=== PATIENT | male | born 1955 | race Caucasian/White ===

== ENCOUNTER 2017-11-18 09:02 | Emergency (ER) | payer OTHER ==
[2017-11-18 09:58] LABS: #Eosinphils 0.2 thou/uL (0.0-0.7); #Lymphocytes 1.4 thou/uL (1.20-3.40); #Monocytes 0.7 thou/uL (0.11-0.59); #Neutrophils 6.4 thou/uL (1.40-6.50); %Basophils 0.3 % (0.0-1.0); %Eosinophils 2.4 % (0.0-10.0); %Lymphocytes 15.6 % (21.0-51.0); %Monocytes 7.7 % (0.0-10.0); %Neutrophils 73.9 % (42.0-75.0); Hemoglobin 14.2 g/dL (14.0-18.0); Mean Corpuscular HGB CONC 32.5 g/dL (32.0-36.0); Mean Corpuscular Hemoglobin 26.5 pg (27.0-31.0); Mean Corpuscular Volume 81.6 fL (78.0-98.0); PTT 25.3 SEC (22.9-36.1); Platelet Count 190 thou/uL (130-400); Prothrombin Time 12.9 SEC (12.0-14.7); RBC Distribution Width 11.9 % (11.5-14.5); Red Blood Cell (RBC) Count 5.36 mill/uL (4.70-6.10); White Blood Cell (WBC) Count 8.7 thou/uL (4.8-10.8)
[2017-11-18 10:14] LABS: ALT (SGPT) 15 U/L (8-55); AST (SGOT) 15 U/L (5-34); Albumin 4.3 g/dL (3.5-5.0); Alkaline Phosphatase 78 U/L (40-150); Anion Gap 10 mmol/L (10-20); BUN (Urea Nitrogen) 22 mg/dL (8.4-25.7); Bilirubin, Total 0.5 mg/dL (0.2-1.2); Calc. Creatinine Clearance 0 mL/min (70-130); Calcium 9.8 mg/dL (7.8-10.44); Carbon Dioxide 31 mmol/L (22-29); Chloride 98 mmol/L (98-107); Estimated GFR-MDRD 49; Globulin 3.6 g/dL (2.4-3.5); Glucose 274 mg/dL (70-105); Potassium 4.3 mmol/L (3.5-5.1); Protein, Total 7.9 g/dL (6.0-8.3); Sodium 135 mmol/L (136-145)
== END 2017-11-18 11:15 | disposition home or self-care (01) ==
LOC: ERS 09:02
DX: M79.81 Nontraumatic hematoma of soft tissue (principal); E11.9 Type 2 diabetes mellitus without complications; I10 Essential (primary) hypertension; Z86.73 Personal history of transient ischemic attack (TIA), and cerebral infarction without residual deficits; Z79.82 Long term (current) use of aspirin; Z79.84 Long term (current) use of oral hypoglycemic drugs; Z79.899 Other long term (current) drug therapy
CPT/HCPCS: 36415; 80053; 85025; 85610; 85730; 99283

== ENCOUNTER 2018-04-22 07:01 | Day surgery (SDC) | payer OTHER ==
--- NOTE | 2018-04-02 04:31 | HP ---
HISTORY OF PRESENT ILLNESS: This is a 63-year-old male, who comes in for colonoscopy because of chronic diarrhea. The patient's diarrhea is persistent_ . The patient has had no fever, no weight loss. The patient also complains of alternative bowel movement. The patient underwent colonoscopy because of chronic diarrhea and weight loss. He also has a history of colon cancer. ALLERGIES: NONE. SOCIAL HISTORY: The patient does not smoke, but drinks alcohol socially. PAST MEDICAL HISTORY: 1. Diabetes. 2. Hypertension. 3. Hyperlipidemia. 4. Status post coronary artery bypass graft. 5. Status post CVA recovery. 6. Obesity. 7. Chronic kidney disease. 8. Peripheral vascular disease. PHYSICAL EXAMINATION: VITAL SIGNS: Pulse is 70, blood pressure 150/70. HEENT: Conjunctivae clear. CARDIOVASCULAR SYSTEM: First and second heart sounds heard. LUNGS: Clear to auscultation. ABDOMEN: Soft. No organomegaly. No tenderness. No masses. ADMITTING DIAGNOSIS: A 63-year-old male with family history of colon cancer, chronic diarrhea. PLAN: Colonoscopy. Job ID: [id number] [facility]
[2018-04-21 11:13] VITALS: BMI 34.7
--- NOTE | 2018-04-21 20:36 | HP ---
HISTORY OF PRESENT ILLNESS: This is a 63-year-old male comes with colonoscopy because history of diarrhea. The patient has had diarrhea over the last 2 months. Stools are watery. The diarrhea was actually worse in the night time than in the daytime. . No abdominal pain, hematochezia, melena, or weight loss. The patient underwent colonoscopy for chronic diarrhea. ALLERGIES: NONE. SOCIAL HISTORY: The patient does not smoke or drink alcohol socially. MEDICAL ILLNESSES: 1. Diabetes. 2. Hypertension. 3. Hyperlipidemia. 4. Coronary artery disease, status post coronary artery bypass graft. 5. Peripheral vascular disease. 6. Status post CVA recovery. 7. Obesity. 8. Chronic kidney disease. PHYSICAL EXAMINATION: VITAL SIGNS: Pulse is 70 and blood pressure 130/70. HEENT: Conjunctivae clear. CARDIOVASCULAR: First and second heart sounds heard. LUNGS: Clear to auscultation. ABDOMEN: Soft. No organomegaly. No tenderness. No masses. ADMITTING DIAGNOSIS: Chronic diarrhea. PLAN: Colonoscopy. Job ID: [id number] [facility]
[2018-04-22] MEDS ORDERED: PROPOFOL 200 MG/20 ML VIAL ONE (15:27)
--- NOTE | 2018-04-23 08:48 | OP ---
DATE OF PROCEDURE: 04/22/2018 PROCEDURE PERFORMED: Colonoscopy. PREOPERATIVE DIAGNOSES: A 63-year-old male, undergoing colonoscopy for colon cancer. He has history of diarrhea. POSTOPERATIVE DIAGNOSES: Poor prep, thick brownish stool coating the mucosa and also there were some areas that had some solid stool. Although the exam was done, the exam was not a very good one. The mucosa appears normal, but no colitis seen. Overall, the quality of prep on the exam is not very good. DESCRIPTION OF PROCEDURE: The patient was placed on his left lateral position and was given sedation by Anesthesia Department. The rectal exam was done before the scope was advanced into the rectum. No lesions felt on rectal exam. A Pentax video colonoscope was introduced into the rectum and advanced all the way to the right colon. The exam was very difficult. Right from the rectum, there was fecal coating the mucosa and also some solid stool in the sigmoid colon. Water was irrigated and washed out. The mucosa appears normal and no evidence of any colitis seen. The quality of the exam was not very good. Although, the right colon was reached. The appendiceal orifice and ileocecal wall could not be well seen. On withdrawal of scope to the ascending colon, hepatic flexure, transverse colon, splenic flexure, descending colon, sigmoid colon, no pathology seen. Rectum showed hemorrhoids. DISCHARGE PLAN: This is a 63-year-old male came for colonoscopy for colon cancer screening. The colonoscopy showed no pathology. However, the exam was not very good because of retained fecal material. We will plan to bring the patient in the near future for repeat colonoscopy. Job ID: [id number]
== END 2018-04-22 11:28 | disposition home or self-care (01) ==
LOC: SDC 07:01
PROVIDERS: ATTEND Internal Medicine Gastroenterology
PROC: 0DJD8ZZ Inspection of Lower Intestinal Tract, Via Natural or Artificial Opening Endoscopic (ICD-10-PCS; principal; 2018-04-22)
DX: K52.9 Noninfective gastroenteritis and colitis, unspecified (principal); E78.5 Hyperlipidemia, unspecified; I12.9 Hypertensive chronic kidney disease with stage 1 through stage 4 chronic kidney disease, or unspecified chronic kidney disease; E11.22 Type 2 diabetes mellitus with diabetic chronic kidney disease; N18.9 Chronic kidney disease, unspecified; E11.51 Type 2 diabetes mellitus with diabetic peripheral angiopathy without gangrene; E66.9 Obesity, unspecified; Z68.34 Body mass index [BMI] 34.0-34.9, adult; Z86.73 Personal history of transient ischemic attack (TIA), and cerebral infarction without residual deficits; Z80.0 Family history of malignant neoplasm of digestive organs; Z79.02 Long term (current) use of antithrombotics/antiplatelets; Z79.4 Long term (current) use of insulin; Z79.82 Long term (current) use of aspirin; Z79.899 Other long term (current) drug therapy; Z95.1 Presence of aortocoronary bypass graft
CPT/HCPCS: 36416; J2704

== ENCOUNTER 2019-01-07 00:58 | Inpatient (IN) | payer OTHER ==
[2019-01-07 06:25] VITALS: BMI 32.3
[2019-01-07] MEDS ORDERED: Ondansetron ODT 4 MG TAB SL PRN (06:43)
[2019-01-07] MEDS ORDERED: Ondansetron PF 4 MG/2 ML Vial IVP PRN ×2 (06:43→11:59)
[2019-01-07] MEDS ORDERED: Sodium Chloride 0.9% 1,000 ML IV SCH (06:43)
--- NOTE | 2019-01-07 08:54 | RAD ---
FRONTAL VIEW CHEST: Date: 01/07/19 COMPARISON: 10/04/16. INDICATION: Pain. FINDINGS: There is enlargement of the cardiac silhouette and pulmonary vasculature. Bilateral interstitial prom inence is seen. No discrete pneumothorax or significant effusion. Evidence of prior sternotomy. IMPRESSION: Findings favor fluid overload. Superimposed pneumonitis is not excluded. Recommend clinical correlati on, and imaging follow-up may be obtained for continued assessment. POS: [facility]
--- NOTE | 2019-01-07 09:11 | ULT ---
PRELIMINARY REPORT/[facility]/EMERGENCY AFTER HOURS PROCEDURE: PROCEDURE INFORMATION: Exam: US Abdomen Limited, Right Upper Quadrant Exam date and time: 01/07/2019 2:15 AM Clinical history: 63 years old, male; Fever and nausea and vomiting and other: Diarrhea; Abdominal pa in; Localized; Right upper quadrant (ruq); Patient HX: Ruq abd pain, n/v/d, fever TECHNIQUE: Imaging protocol: Real-time ultrasound of the abdomen with image documentation. Examination was focus ed on the right upper quadrant. COMPARISON: No relevant prior studies available. FINDINGS: Liver: Unremarkable liver, no focal abnormality. Gallbladder: The gallbladder may be partially contracted. No cholelithiasis. No definite/significant gallbladder wall thickening. Gallbladder wall thickness is upper range of nor mal, approximately 3 mm. No pericholecystic fluid. Common bile duct: No biliary dilation, common duct measures 3.1 mm. Pancreas: Visible pancreas unremarkable. Some of the pancreas is obscured by bowel gas. Right kidney: Images of the right kidney show no hydronephrosis. IMPRESSION: 1. No cholelithiasis or biliary tree dilation. 2. Other findings discussed above. Thank you for allowing us to participate in the care of your patient. Dictated and Authenticated by: Alvin James MD 01/07/2019 3:09 AM Central Time ([place] & [place]) FINAL REPORT RIGHT UPPER QUADRANT ULTRASOUND: HISTORY: Right upper quadrant pain x1 day. Nausea. Diarrhea. Vomiting. Fever. FINDINGS: No sonographic abnormality with regards to the liver. Pancreas is obscured. Portal vein is patent. Gallbladder is contracted. No sonographic evidence of cholelithiasis or pericholecystic fluid. Gallbl adder wall thickness is at the upper limits of normal and may, in part, be due to contracted state. C ommon bile duct diameter is 0.3 cm. Right kidney has a normal cortical echotexture. No hydronephrosis. IMPRESSION: This report is in agreement with the preliminary report by [facility]. No sonographic evidence of cholelith iasis or cholecystitis. Correlate clinically. HIDA scan if clinically warranted. POS: [facility]
[2019-01-07] MEDS ORDERED: Bisacodyl 5 MG TAB PO PRN (11:59)
[2019-01-07] MEDS ORDERED: Dextrose 50% Abboject 50 ML SYRINGE SLOW IVP PRN (11:59)
[2019-01-07] MEDS ORDERED: Acetaminophen 650 MG Suppository PR PRN (11:59)
[2019-01-07] MEDS ORDERED: Dextrose 5% in Water 1,000 ML IV PRN (11:59)
[2019-01-07] MEDS ORDERED: HumaLOG 300 UNITS/3 ML VIAL SC PRN (11:59)
[2019-01-07] MEDS ORDERED: Potassium Chloride 20 MEQ TAB PO SCH (12:15)
[2019-01-07] MEDS ORDERED: [UNRECOGNIZED DRUG - OTHER] SQ SCH (12:15)
[2019-01-07] MEDS ORDERED: INSULIN ASPART SQ SCH (12:15)
[2019-01-07] MEDS: Sodium Chloride 0.9% 1,000 ML IV SCH ×2 (12:40→20:06)
[2019-01-07] MEDS ORDERED: Vancomycin HCl 1 GM in Premix Bag 1 BAG IVPB SCH (14:00)
[2019-01-07] MEDS: Piperacillin/Tazobactam 4.5 GM in Sodium Chloride 0.9% 100 ML IVPB SCH ×2 (15:30→23:24)
[2019-01-07] MEDS: Acetaminophen 325 MG TAB PO PRN ×2 (15:38→20:10)
[2019-01-07] MEDS ORDERED: Potassium Chloride 10 MEQ in Premix Bag 1 BAG IVPB SCH (15:45)
[2019-01-07] MEDS: Metoprolol Tartrate 25 MG TAB PO SCH (20:06)
[2019-01-08] MEDS: Piperacillin/Tazobactam 4.5 GM in Sodium Chloride 0.9% 100 ML IVPB SCH ×2 (06:08→15:32)
[2019-01-08 06:12] LABS: #Basophils 0.2 thou/uL (0.0-0.2); #Lymphocytes 0.4 thou/uL (1.20-3.40); #Monocytes 0.4 thou/uL (0.11-0.59); #Neutrophils 7.9 thou/uL (1.40-6.50); %Basophils 1.8 % (0.0-1.0); %Eosinophils 0.2 % (0.0-10.0); %Lymphocytes 4.5 % (21.0-51.0); %Monocytes 4.5 % (0.0-10.0); %Neutrophils 89.1 % (42.0-75.0); Hemoglobin 12.2 g/dL (14.0-18.0); Mean Corpuscular HGB CONC 32.8 g/dL (32.0-36.0); Mean Corpuscular Hemoglobin 27.4 pg (27.0-31.0); Mean Corpuscular Volume 83.5 fL (78.0-98.0); Mean Platelet Volume 9.5 fL (7.4-10.4); Platelet Count 124 thou/uL (130-400); RBC Distribution Width 12.2 % (11.5-14.5); Red Blood Cell (RBC) Count 4.46 mill/uL (4.70-6.10); White Blood Cell (WBC) Count 8.8 thou/uL (4.8-10.8)
[2019-01-08 06:33] LABS: Anion Gap 13 mmol/L (10-20); BUN (Urea Nitrogen) 17 mg/dL (8.4-25.7); Calc. Creatinine Clearance 97 mL/min (70-130); Carbon Dioxide 20 mmol/L (23-31); Chloride 104 mmol/L (98-107); Estimated GFR-MDRD 67; Glucose 138 mg/dL (80-115); Potassium 3.7 mmol/L (3.5-5.1); Sodium 133 mmol/L (136-145)
--- NOTE | 2019-01-08 07:58 | HP ---
PRIMARY CARE PROVIDER: Fiona Spencer MD CHIEF COMPLAINT: Vomiting and diarrhea. HISTORY OF PRESENT ILLNESS: Mr. Esquivel is a pleasant 63-year-old gentleman, who was seen at [facility] on January 07, 2019. The patient reports having femoral bypass surgery on December 26 in the [place] area. He was doing well until yesterday. Yesterday evening, he developed chills and fever. He reports 103 degrees Fahrenheit temperature at home. He also reports a chronic cough, but no sputum. He has received influenza vaccine this year. He also reports vomiting multiple times yesterday and earlier today. He denies any blood in the vomitus. He also reports multiple bowel movements yesterday. He denies any abdominal pain. He denies any chest pain. He denies any lightheadedness. He reports generalized weakness. He presented to the emergency room at [place]. He received Zosyn there. He also had CT scan of the abdomen, which showed cholelithiasis, but no cholecystitis. He was transferred to the emergency room at [facility] for further management. REVIEW OF SYSTEMS: All systems were reviewed and found to be negative. PAST MEDICAL HISTORY: Diabetes mellitus type 2, bilateral cataract, coronary artery disease, status post PCI with stents, hypertension, and TIA. PAST SURGICAL HISTORY: Right cataract surgery, coronary artery bypass graft surgery, and femoral bypass of the right lower extremity. SOCIAL HISTORY: The patient denies tobacco use or recreational drug use. He denies any alcohol use. FAMILY HISTORY: Significant for myocardial infarction in his father. ALLERGIES: NO KNOWN DRUG ALLERGIES. CURRENT MEDICATIONS: 1. Aspirin 81 mg daily. 2. Plavix 75 mg daily. 3. Dapagliflozin 10 mg daily. 4. Losartan 25 mg daily. 5. Metformin 1000 mg 2 times a day. 6. Lopressor 50 mg 2 times a day. 7. NovoLog insulin as directed. 8. Crestor 40 mg daily. PHYSICAL EXAMINATION: GENERAL: On examination, Mr. Esquivel is awake and alert, not in acute distress. VITAL SIGNS: Blood pressure is 151/81, pulse 104, respiratory rate 16, and oxygen saturation 95% on 2 L of oxygen. He is currently afebrile. EYES: No scleral icterus. No conjunctival pallor. ENT: Moist mucosal membranes. No oropharyngeal erythema or exudates. NECK: Supple, nontender. Trachea is midline. RESPIRATORY: Accessory muscles of breathing are not active. Chest wall movements are symmetric bilaterally. LUNGS: Clear to auscultation bilaterally. Abdomen: Soft, nontender, bowel sounds are heard, no hepatomegaly, no splenomegaly. NEUROLOGIC: Cranial nerves 2 through 12 are intact. SKIN: No rashes. MUSCULOSKELETAL: Power is 5/5 in all four extremities. LYMPHATIC: No cervical lymphadenopathy. PSYCHIATRIC: Normal mood, normal affect, the patient is oriented to person, place, and time. LABORATORY DATA: Mr. Esquivel's labs and investigations were reviewed. He has leukocytosis with 23,400 white cells, of which 62% are neutrophils and 32% are bands. Hemoglobin and platelet count are normal. Serum sodium is normal. Potassium is decreased at 3.4. Creatinine is elevated at 1.35. Last known creatinine was 1.31 on September 09, 2018. Lactic acid is normal. LFTs are unremarkable. Urinalysis is positive for protein, glucose, ketones and trace blood, negative for nitrite and leukocyte esterase. IMAGING: Chest x-ray suggested fluid overload and superimposed pneumonitis could not be excluded. CT scan of the abdomen and pelvis done with IV contrast showed cholelithiasis, no acute inflammation. He appeared to have a lipoma within the wall of the colon. Abdominal ultrasound did not show cholelithiasis or biliary tree dilatation. ASSESSMENT AND PLAN: Mr. Esquivel is a pleasant 63-year-old gentleman, who was seen at [facility] on January 07, 2019. His problem list includes: 1. Sepsis: Mr. Esquivel is presenting with sepsis. There is no obvious source of infection. Could be gastroenteritis, given his history of nausea, vomiting, and diarrhea. Could also be pneumonia, which could not be excluded on the chest x- ray. Could be bacteremia. He has been started on vancomycin and Zosyn, which I will continue. We will send out blood cultures. 2. Diabetes mellitus type 2: Start Accu-Chek and insulin sliding scale. 3. Coronary artery disease: Appears to be stable. 4. Hypertension: Resume home medications, monitor vital signs and titrate antihypertensives as needed. 5. Chronic kidney disease stage 3: Appears to be stable. Many thanks for allowing me to participate in your patient's care. Please feel free to contact me with any questions or concerns. LEVEL OF RISK: Moderate. LEVEL OF COMPLEXITY: Moderate. Job ID: [id number] [facility]TD[facility]
[2019-01-08] MEDS: Aspirin 81 mg Enteric Coated Tablet PO SCH (08:34)
[2019-01-08] MEDS: Metoprolol Tartrate 25 MG TAB PO SCH ×2 (08:34→20:29)
[2019-01-08] MEDS: Clopidogrel Bisulfate 75 MG TAB PO SCH (08:34)
[2019-01-08] MEDS: Rosuvastatin 20 MG TAB PO SCH (08:34)
[2019-01-08] MEDS: Losartan 25 MG TAB PO SCH (08:34)
[2019-01-08] MEDS: Enoxaparin Sodium 40 MG/0.4 ML SYRINGE SC SCH (08:35)
[2019-01-08] MEDS ORDERED: FLU VACC QS2019-20(6MOS UP)/PF 60 MCG/0.5 ML SYRINGE IM ONE (09:00)
[2019-01-08] MEDS ORDERED: Empagliflozin [Jardiance] 10 MG PO SCH (10:45)
[2019-01-08] MEDS: Sodium Chloride 0.9% 1,000 ML IV SCH ×3 (12:00→20:29)
--- NOTE | 2019-01-08 12:11 | PDOC.HOSPP ---
- Subjective Encounter Date: 01/08/19 Encounter Time: 08:40 Subjective: Pt seen for followup re: sepsis. Feels better, no complaints. - Objective Vital Signs & Weight: Vital Signs (12 hours) Temp Pulse Resp BP BP Pulse Ox 01/08/19 11:50 98.4 F 72 14 139/84 94 L 01/08/19 08:35 95 01/08/19 08:10 98.0 F 90 20 144/86 H 144/86 H 95 Weight Admit Weight 218 lb 14.4 oz Weight 218 lb 14.4 oz I&O: 01/07/19 01/08/19 01/09/19 06:59 06:59 06:59 Intake Total 3830 Output Total 100 Balance 3730 Result Diagrams: 01/08/19 05:50 01/08/19 05:50 Additional Labs: Accuchecks 01/08/19 01/08/19 01/07/19 11:55 06:09 19:31 POC Glucose 129 H 144 H 95 01/07/19 01/07/19 17:05 12:46 POC Glucose 95 101 labs and MARs reviewed by ct Hospitalist ROS - Review of Systems Cardiovascular: denies: chest pain, palpitations, orthopnea, paroxysmal noc. dyspnea, edema, light headedness Gastrointestinal: denies: nausea, vomiting, abdominal pain, diarrhea, constipation, melena, hematochezia - Medication Medications: Active Medications Generic Name Dose Route Start Last Admin Trade Name Freq PRN Reason Stop Dose Admin Acetaminophen 650 mg 01/07/19 11:59 01/07/19 20:10 Tylenol PO 650 mg Q4H PRN Administration Headache/Fever/Mild Pain (1-3) Aspirin 81 mg 01/08/19 09:00 01/08/19 08:34 Ecotrin PO 81 mg DAILY ANGÉLICA Administration Clopidogrel Bisulfate 75 mg 01/08/19 09:00 01/08/19 08:34 Plavix PO Not Given DAILY [facility] Enoxaparin Sodium 40 mg 01/08/19 09:00 01/08/19 08:35 Lovenox SC Not Given 0900 ANGÉLICA Piperacillin Sod/Tazobactam 100 mls @ 200 mls/hr 01/07/19 15:00 01/08/19 06: 08 Sod 4.5 gm/ Sodium Chloride IVPB 100 mls 0700,1500,2300 ANGÉLICA Administration Sodium Chloride 1,000 mls @ 75 mls/hr 01/07/19 12:15 01/08/19 12:00 Normal Saline 0.9% IV 1,000 mls .[id number] ANGÉLICA Administration Vancomycin HCl 2 gm/ Sodium 500 mls @ 250 mls/hr 01/07/19 13:00 01/08/19 11: 57 Chloride IVPB 500 mls 1300 ANGÉLICA Administration Losartan Potassium 25 mg 01/08/19 09:00 01/08/19 08:34 Cozaar PO 25 mg DAILY ANGÉLICA Administration Metoprolol Tartrate 50 mg 01/07/19 21:00 01/08/19 08:34 Lopressor PO 50 mg BID ANGÉLICA Administration Empagliflozin [ 0 each 01/08/19 10:45 01/08/19 11:57 Jardiance] 10 Mg PO 01/08/19 12:45 1 each NOW ANGÉLICA Administration Rosuvastatin Calcium 40 mg 01/08/19 09:00 01/08/19 08:34 Crestor PO 40 mg DAILY ANGÉLICA Administration - Exam General - other findings: Obese Eye: anicteric sclera ENT: moist mucosa Neck: supple, no JVD Heart: RRR, no rubs Respiratory: CTAB Gastrointestinal: soft, non-tender Skin - other findings: wounds as documented Musculoskeletal: no muscle wasting Psychiatric: normal affect, normal behavior Hosp A/P (1) Sepsis Code(s): A41.9 - SEPSIS, UNSPECIFIED ORGANISM Status: Acute (2) Hyponatremia Code(s): E87.1 - HYPO-OSMOLALITY AND HYPONATREMIA Status: Acute (3) CAD (coronary artery disease) Code(s): I25.10 - ATHSCL HEART DISEASE OF [place] CORONARY ARTERY W/O ANG PCTRS Status: Chronic (4) DM2 (diabetes mellitus, type 2) Status: Chronic (5) HTN (hypertension) Code(s): I10 - ESSENTIAL (PRIMARY) HYPERTENSION Status: Chronic (6) Restless leg syndrome Status: Suspected - Plan continue antibiotics, out of bed/ambulate await blood cultures, continue antibiotics. Sepsis secondary to skin infection vs. blood stream infection.
--- NOTE | 2019-01-08 19:34 | CON ---
DATE OF CONSULTATION: REASON FOR CONSULTATION: Foot ulcer. HISTORY OF PRESENT ILLNESS: Mr. Esquivel is a 63-year-old diabetic male with peripheral neuropathy, who stepped on an earring over a year ago and walked around with it inside of his foot all day long. Since that time, he has had a sore in that area overlying the first metatarsal head. [facility], but has not really followed up with them on an ongoing basis. His has been managing the wound by placing antibiotic ointment to it, but states that intermittently it will drain out lateral to the wound or medial to the wound or even up between the first and second toes. He has recently undergone a right lower extremity bypass graft in [place] with a PTFE graft, and his vascular surgeon is planning on doing an angioplasty on the left; however, he denies rest pain or claudication and does not have any other sores on his feet. He came into the hospital because he was feeling very sick and having intractable nausea and vomiting. At that time, his left foot was red and swollen, and there was lymphangitic streaking up onto the foot. He was started on IV antibiotics, and since then, the erythema has resolved, and he is feeling much better. Workup of his abdomen was unremarkable with no abnormality seen on CT or gallbladder ultrasound. He had a foot x-ray in September, which did not show any evidence of osteomyelitis. This was around the same time he was seen [facility]. PAST MEDICAL HISTORY: Diabetes with peripheral neuropathy; coronary artery disease, status post stenting and quadruple bypass; cerebrovascular disease, status post TIA; peripheral vascular disease, status post right lower extremity bypass and with planned left lower extremity angioplasty; and hypertension. PAST SURGICAL HISTORY: Cardiac stents and 4-vessel coronary artery bypass grafting, right lower extremity bypass with graft, and cataract surgery. SOCIAL HISTORY: The patient does not smoke, drink, or use illicit drugs. FAMILY HISTORY: Heart disease in his father. ALLERGIES: HE HAS NO KNOWN DRUG ALLERGIES. OUTPATIENT MEDICATIONS: Include: 1. Aspirin. 2. Plavix. 3. Empagliflozin. 4. Losartan. 5. Metformin. 6. Lopressor. 7. NovoLog. 8. Crestor. INPATIENT MEDICATIONS: Include: 1. Lovenox. 2. Sliding scale insulin. 3. Vancomycin. 4. Zosyn. 5. As well as his home medications. LABORATORY DATA: White count was initially elevated at 23,000, but has come down to 8.8; hematocrit is 37, and platelets are 124. Electrolytes are unremarkable. BUN and creatinine are 17 and 1.12. 1 of 2 blood culture sets is positive for Streptococcus pyogenes (group A Streptococcus). PHYSICAL EXAMINATION: VITAL SIGNS: The patient has been afebrile since his admission, heart rate 72, respirations 14, 94% saturated on room air, blood pressure 139/84. GENERAL: Reveals a healthy-appearing man, in no acute distress. He is not flushed or toxic in appearance. He is not jaundiced or icteric. HEENT: Unremarkable. NECK: Supple without lymphadenopathy or thyroid nodules. HEART: Regular in its rate and rhythm without murmurs, rubs, or gallops. LUNGS: Clear to auscultation bilaterally. ABDOMEN: Soft, nontender, and nondistended. EXTREMITIES: Warm and well perfused without edema. He has palpable dorsalis pedis pulses bilaterally and normal capillary refill. No significant wounds on the right foot. On the left foot, he has a callus with a central ulcer overlying the first metatarsal head with some drainage at the medial edge of the callus. The entire callus was unroofed using a scalpel to shave back the hardened skin. This revealed a shallow ulcer underlying the callus, which did not appear to track to the deep tissues. There was no expressible drainage. This was dressed with antibiotic ointment and gauze. ASSESSMENT: Neurotrophic ulcer, which clinically appears to be fairly shallow. We will manage this with conservative wound management by keeping the ulcer bed moist with antibiotic ointment and dressing with gauze. I will see him in my clinic in 2 weeks' time. We will likely need to continue to shave the callus to prevent this from recurring. The patient wears boot on a daily basis, and I have recommended that he stop wearing boot and wear a postoperative shoe instead. I will order this for him. He was encouraged to keep his weight on his heel rather than walk on the anterior foot to avoid any further damage to the area of the ulcer. Physical Therapy has already been consulted, and we will get them to work with him. If the wound does not heal within the next few months, I would recommend bone scan or MRI of the foot to make sure that he does not have occult osteomyelitis. However, clinically, the wound does not track to the deep tissues. Job ID: [id number]
[2019-01-08] MEDS: Acetaminophen 325 MG TAB PO PRN (20:29)
[2019-01-09] MEDS: Piperacillin/Tazobactam 4.5 GM in Sodium Chloride 0.9% 100 ML IVPB SCH ×2 (00:06→06:08)
[2019-01-09 06:29] LABS: Anion Gap 9 mmol/L (10-20); BUN (Urea Nitrogen) 19 mg/dL (8.4-25.7); Calc. Creatinine Clearance 98 mL/min (70-130); Calcium 8.6 mg/dL (7.8-10.44); Carbon Dioxide 27 mmol/L (23-31); Chloride 106 mmol/L (98-107); Estimated GFR-MDRD 67; Glucose 108 mg/dL (80-115); Potassium 3.8 mmol/L (3.5-5.1); Sodium 138 mmol/L (136-145)
[2019-01-09 06:30] LABS: #Eosinphils 0.1 thou/uL (0.0-0.7); #Lymphocytes 0.8 thou/uL (1.20-3.40); #Monocytes 0.6 thou/uL (0.11-0.59); #Neutrophils 4.3 thou/uL (1.40-6.50); %Basophils 0.4 % (0.0-1.0); %Eosinophils 2.1 % (0.0-10.0); %Lymphocytes 13.5 % (21.0-51.0); %Monocytes 10.4 % (0.0-10.0); %Neutrophils 73.6 % (42.0-75.0); Hemoglobin 12.7 g/dL (14.0-18.0); Mean Corpuscular HGB CONC 33.6 g/dL (32.0-36.0); Mean Corpuscular Hemoglobin 28.2 pg (27.0-31.0); Mean Corpuscular Volume 83.9 fL (78.0-98.0); Mean Platelet Volume 10.2 fL (7.4-10.4); Platelet Count 112 thou/uL (130-400); RBC Distribution Width 12.2 % (11.5-14.5); Red Blood Cell (RBC) Count 4.51 mill/uL (4.70-6.10); White Blood Cell (WBC) Count 5.8 thou/uL (4.8-10.8)
[2019-01-09] MEDS: Clopidogrel Bisulfate 75 MG TAB PO SCH (07:50)
[2019-01-09] MEDS: Metoprolol Tartrate 25 MG TAB PO SCH ×2 (07:50→20:33)
[2019-01-09] MEDS: Aspirin 81 mg Enteric Coated Tablet PO SCH (07:50)
[2019-01-09] MEDS: Rosuvastatin 20 MG TAB PO SCH (07:51)
[2019-01-09] MEDS: Enoxaparin Sodium 40 MG/0.4 ML SYRINGE SC SCH (07:52)
[2019-01-09] MEDS: Losartan 25 MG TAB PO SCH (07:52)
[2019-01-09] MEDS: Empagliflozin [Jardiance] 10 MG PO SCH (07:56)
[2019-01-09 11:30] LABS: Vancomycin, Trough 11.4 ug/mL
[2019-01-09] MEDS ORDERED: Vancomycin 1.5 GRAM/300 ML BAG 1.5 GM in Premix Bag 1 BAG IVPB SCH (13:00)
[2019-01-09] MEDS: cefTRIAXone\\ROCEPHIN 1 GM in Sodium Chloride 0.9% 100 ML IVPB SCH (14:15)
[2019-01-09] MEDS ORDERED: Magnevist 469MG/ML 20 ML VIAL ONE (15:53)
--- NOTE | 2019-01-09 16:58 | MRI ---
MR of the left foot with and without IV contrast INDICATION: Concern for osteomyelitis and septic arthritis of the first digit MTP joint. Contrast: 20 cc of MultiHance FINDINGS: There is some mild edema involving the soft tissues plantar and medial to the greater MTP j oint. There is a very small joint effusion in the MTP joint. There is no abnormal edema involving the great toe metatarsal head or sesamoids to suggest osteomyelitis. No abnormal enhancement is noted . There is some mild soft tissue enhancement involving the plantar and medial soft tissues near the great toe MTP joint. Lisfranc alignment is preserved. Intrinsic foot musculature appears within emilio l limits. Visualized plantar fascia is unremarkable appearing. IMPRESSION: Mild cellulitis of the plantar and medial aspect of the forefoot, adjacent to the great t oe MTP joint. No overt changes to suggest presence of osteomyelitis. There is no overt changes to suggest septic arthritis of the great toe MTP joint.
[2019-01-09] MEDS: Sodium Chloride 0.9% 1,000 ML IV SCH (17:01)
--- NOTE | 2019-01-09 17:31 | PDOC.HOSPP ---
- Subjective Encounter Date: 01/09/19 Encounter Time: 09:00 Subjective: Pt seen for followup re: sepsis. Feels better. Slept well. - Objective Vital Signs & Weight: Vital Signs (12 hours) Temp Pulse Resp BP Pulse Ox 01/09/19 11:50 97.8 F 69 18 151/88 H 94 L 01/09/19 07:57 97.9 F 74 16 154/85 H 95 Weight Admit Weight 218 lb 14.4 oz Weight 218 lb 14.4 oz I&O: 01/08/19 01/09/19 01/10/19 06:59 06:59 06:59 Intake Total 3830 2807 Output Total 100 Balance 3730 2807 Result Diagrams: 01/09/19 05:28 01/09/19 05:28 Additional Labs: Accuchecks 01/09/19 01/09/19 01/09/19 16:55 11:24 04:10 POC Glucose 76 91 110 01/08/19 01/08/19 19:07 15:56 POC Glucose 174 H 178 H labs and MARs reviewed by ia Hospitalist ROS - Review of Systems Cardiovascular: denies: chest pain, palpitations, orthopnea, paroxysmal noc. dyspnea, edema, light headedness Gastrointestinal: denies: nausea, vomiting, abdominal pain, diarrhea, constipation, melena, hematochezia - Medication Medications: Active Medications Generic Name Dose Route Start Last Admin Trade Name Freq PRN Reason Stop Dose Admin Acetaminophen 650 mg 01/07/19 11:59 01/08/19 20:29 Tylenol PO 650 mg Q4H PRN Administration Headache/Fever/Mild Pain (1-3) Aspirin 81 mg 01/08/19 09:00 01/09/19 07:50 Ecotrin PO 81 mg DAILY ANGÉLICA Administration Clopidogrel Bisulfate 75 mg 01/08/19 09:00 01/09/19 07:50 Plavix PO 75 mg DAILY ANGÉLICA Administration Enoxaparin Sodium 40 mg 01/08/19 09:00 01/09/19 07:52 Lovenox SC 40 mg 0900 ANGÉLICA Administration Sodium Chloride 1,000 mls @ 75 mls/hr 01/07/19 12:15 01/09/19 17:01 Normal Saline 0.9% IV Not Given .[id number] ANGÉLICA Ceftriaxone Sodium 1 gm/ 100 mls @ 200 mls/hr 01/09/19 14:00 01/09/19 14:15 Sodium Chloride IVPB 100 mls 1400 ANGÉLICA Administration Losartan Potassium 25 mg 01/08/19 09:00 01/09/19 07:52 Cozaar PO 25 mg DAILY ANGÉLICA Administration Metoprolol Tartrate 50 mg 01/07/19 21:00 01/09/19 07:50 Lopressor PO 50 mg BID ANGÉLICA Administration Empagliflozin [ 0 each 01/09/19 09:00 01/09/19 07:56 Jardiance] 10 Mg PO 1 each DAILY ANGÉLICA Administration Rosuvastatin Calcium 40 mg 01/08/19 09:00 01/09/19 07:51 Crestor PO 40 mg DAILY ANGÉLICA Administration - Exam General - other findings: Obesity Eye: PERRL, anicteric sclera ENT: normocephalic atraumatic, moist mucosa Neck: supple, symmetric Heart: RRR, no gallops, no rubs Respiratory: CTAB Gastrointestinal: soft, non-tender Extremities: no clubbing Skin - other findings: wound as documented Psychiatric: normal affect, normal behavior Hosp A/P (1) Sepsis Code(s): A41.9 - SEPSIS, UNSPECIFIED ORGANISM Status: Acute (2) Bacteremia Code(s): R78.81 - BACTEREMIA Status: Acute (3) CAD (coronary artery disease) Code(s): I25.10 - ATHSCL HEART DISEASE OF [place] CORONARY ARTERY W/O ANG PCTRS Status: Chronic (4) DM2 (diabetes mellitus, type 2) Status: Chronic (5) HTN (hypertension) Code(s): I10 - ESSENTIAL (PRIMARY) HYPERTENSION Status: Chronic (6) Restless leg syndrome Status: Suspected (7) Hyponatremia Code(s): E87.1 - HYPO-OSMOLALITY AND HYPONATREMIA Status: Resolved - Plan plan discussed w/ family, continue antibiotics, out of bed/ambulate 1/2 blood cultures positive for strep pyogenes. Consult ID service. Add Glucerna BID. Sepsis secondary to skin infection vs. blood stream infection.
--- NOTE | 2019-01-09 19:26 | CON ---
DATE OF CONSULTATION: 01/09/2019 REASON FOR CONSULTATION: Bacteremia. HISTORY OF PRESENT ILLNESS: A 63-year-old who has a history of type 2 diabetes, coronary artery disease with prior stents, peripheral vascular disease with recent femoral-popliteal bypass in the [place] in [place], and an ulcer in the left first MPJ skin site, which has been followed by program management intern, who was admitted with nausea, vomiting, fever and chills of sudden onset on the day of admission. A little bit of headaches, which have resolved. No visual symptoms, sore throat, odynophagia, or dysphagia. No back pain. No cough, sputum production, or chest pain. No abdominal pain. A little bit of tenderness in his surgical site, mostly in the groin area. No new diarrhea or genitourinary symptoms. No joint symptoms. The left MPJ skin site apparently had kind of a reddish yellow exudate expressed by the about 2 or 3 days ago in a fairly large amount. PAST MEDICAL HISTORY: Type 2 diabetes, coronary artery disease, stents, peripheral vascular disease, femoral-popliteal of right lower extremity in [place]. 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 Never smoker. Lives in [place]. ALLERGIES: NONE. FAMILY HISTORY: Noncontributory. CURRENT MEDICATIONS: 1. Tylenol. 2. Ecotrin. 3. Bacitracin. 4. Dulcolax. 5. Plavix. 6. Enoxaparin. 7. Insulin. 8. Losartan. 9. Metoprolol. 10. Zofran. 11. Jardiance. 12. Zosyn. 13. Vancomycin. PHYSICAL EXAMINATION: VITAL SIGNS: BP normal, maybe a little elevation in systolic. Temperature within normal limits since admission. SKIN: There is a linear wound in the bottom of the left first MPJ with a little bit of erythema. It has improved quite a bit since admission. In the right groin, there is the residual from the surgical site with very mild erythema at the proximal edge of the groin incision, very small area, a little bit of yellowish base. It is less than 0.2 cm in width. No lymphadenopathy. HEENT: Noncontributory. NECK: Supple. LUNGS: Symmetric. Clear breath sounds. HEART: S1 and S2, regular rate without murmurs. ABDOMEN: Soft, not distended or tender. No ascites. No bladder distention. EXTREMITIES: No joint inflammatory activity. Pulses are 1+ in dorsalis pedis. Cap refill normal. LABORATORY DATA: White cell count is 8.8 and 5.8; hemoglobin 12.2; platelets 124, now 112; 89% neutrophils, down to 73%. Creatinine 1.12. Vancomycin trough 11.4. Blood cultures 1/4 sets with Streptococcus pyogenes. IMAGING: Abdomen and pelvis CT with no major findings. Chest x-ray, superimposed pneumonitis not excluded, but just bilateral interstitial prominence. Abdomen ultrasound, no abnormalities of significance. 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 DISCUSSION: The differential diagnosis is an infection in the left MPJ area, possible osteomyelitis and septic arthritis versus complication of the fem-pop bypass groin site. An alternate process is not likely. I believe that the foot is the more likely culprit here in view of what we described in the history. We will switch him to Rocephin 1 g daily and MRI the left foot with contrast. Job ID: [id number]
[2019-01-10] MEDS: Sodium Chloride 0.9% 1,000 ML IV SCH ×3 (00:40→21:40)
[2019-01-10 06:26] LABS: #Eosinphils 0.1 thou/uL (0.0-0.7); #Monocytes 0.8 thou/uL (0.11-0.59); #Neutrophils 4.7 thou/uL (1.40-6.50); %Basophils 0.2 % (0.0-1.0); %Eosinophils 1.6 % (0.0-10.0); %Lymphocytes 15.8 % (21.0-51.0); %Monocytes 11.5 % (0.0-10.0); Hemoglobin 12.7 g/dL (14.0-18.0); Mean Corpuscular HGB CONC 33.7 g/dL (32.0-36.0); Mean Corpuscular Hemoglobin 27.7 pg (27.0-31.0); Mean Corpuscular Volume 82.1 fL (78.0-98.0); Mean Platelet Volume 9.9 fL (7.4-10.4); Platelet Count 116 thou/uL (130-400); RBC Distribution Width 12.1 % (11.5-14.5); White Blood Cell (WBC) Count 6.6 thou/uL (4.8-10.8)
[2019-01-10 06:36] LABS: Anion Gap 13 mmol/L (10-20); BUN (Urea Nitrogen) 16 mg/dL (8.4-25.7); Calc. Creatinine Clearance 121 mL/min (70-130); Calcium 8.6 mg/dL (7.8-10.44); Carbon Dioxide 23 mmol/L (23-31); Chloride 106 mmol/L (98-107); Estimated GFR-MDRD 87; Glucose 94 mg/dL (80-115); Potassium 3.7 mmol/L (3.5-5.1); Sodium 138 mmol/L (136-145)
[2019-01-10] MEDS: Losartan 25 MG TAB PO SCH (08:11)
[2019-01-10] MEDS: Aspirin 81 mg Enteric Coated Tablet PO SCH (08:11)
[2019-01-10] MEDS: Metoprolol Tartrate 25 MG TAB PO SCH ×2 (08:11→19:34)
[2019-01-10] MEDS: Rosuvastatin 20 MG TAB PO SCH (08:11)
[2019-01-10] MEDS: Empagliflozin [Jardiance] 10 MG PO SCH (08:11)
[2019-01-10] MEDS: Enoxaparin Sodium 40 MG/0.4 ML SYRINGE SC SCH (08:11)
[2019-01-10] MEDS: Clopidogrel Bisulfate 75 MG TAB PO SCH (08:11)
[2019-01-10] MEDS: Bacitracin Zinc Ointment 30 gm TUBE TOP SCH (08:12)
[2019-01-10] MEDS ORDERED: Melatonin 3 MG TAB PO PRN (10:56)
[2019-01-10] MEDS: cefTRIAXone\\ROCEPHIN 1 GM in Sodium Chloride 0.9% 100 ML IVPB SCH (13:31)
--- NOTE | 2019-01-10 17:05 | PDOC.HOSPP ---
- Subjective Encounter Date: 01/10/19 Encounter Time: 08:20 Subjective: Pt seen for followup re: bacteremia. Feels better. - Objective Vital Signs & Weight: Vital Signs (12 hours) Temp Pulse Resp BP BP Pulse Ox 01/10/19 15:08 97.8 F 77 17 170/71 H 93 L 01/10/19 11:44 97.4 F L 69 18 149/84 H 94 L 01/10/19 08:11 92 L 01/10/19 08:00 97.6 F 87 18 166/96 H 92 L Weight Admit Weight 218 lb 14.4 oz Weight 216 lb 14.4 oz I&O: 01/09/19 01/10/19 01/11/19 06:59 06:59 06:59 Intake Total 2807 1400 1245 Balance 2807 1400 1245 Result Diagrams: 01/10/19 05:49 01/10/19 05:49 Additional Labs: Accuchecks 01/10/19 01/10/19 01/10/19 15:14 11:51 04:34 POC Glucose 165 H 94 93 01/09/19 01/09/19 19:04 16:55 POC Glucose 104 76 Labs and MARs reviewed by sc Hospitalist ROS - Review of Systems Gastrointestinal: denies: nausea, vomiting, abdominal pain, diarrhea, constipation, melena, hematochezia Genitourinary: denies: dysuria, frequency, incontinence, hematuria, retention - Medication Medications: Active Medications Generic Name Dose Route Start Last Admin Trade Name Freq PRN Reason Stop Dose Admin Acetaminophen 650 mg 01/07/19 11:59 01/08/19 20:29 Tylenol PO 650 mg Q4H PRN Administration Headache/Fever/Mild Pain (1-3) Aspirin 81 mg 01/08/19 09:00 01/10/19 08:11 Ecotrin PO 81 mg DAILY ANGÉLICA Administration Bacitracin Zinc 1 gm 01/10/19 09:00 01/10/19 08:12 Bacitracin Zinc Ointment 30 Gm TOP Not Given DAILY ANGÉLICA Clopidogrel Bisulfate 75 mg 01/08/19 09:00 01/10/19 08:11 Plavix PO 75 mg DAILY ANGÉLICA Administration Enoxaparin Sodium 40 mg 01/08/19 09:00 01/10/19 08:11 Lovenox SC 40 mg 0900 ANGÉLICA Administration Sodium Chloride 1,000 mls @ 75 mls/hr 01/07/19 12:15 01/10/19 11:48 Normal Saline 0.9% IV 1,000 mls .[id number] ANGÉLICA Administration Ceftriaxone Sodium 1 gm/ 100 mls @ 200 mls/hr 01/09/19 14:00 01/10/19 13:31 Sodium Chloride IVPB 100 mls 1400 ANGÉLICA Administration Losartan Potassium 25 mg 01/08/19 09:00 01/10/19 08:11 Cozaar PO 25 mg DAILY ANGÉLICA Administration Metoprolol Tartrate 50 mg 01/07/19 21:00 01/10/19 08:11 Lopressor PO 50 mg BID ANGÉLICA Administration Empagliflozin [ 0 each 01/09/19 09:00 01/10/19 08:11 Jardiance] 10 Mg PO 1 each DAILY ANGÉLICA Administration Rosuvastatin Calcium 40 mg 01/08/19 09:00 01/10/19 08:11 Crestor PO 40 mg DAILY ANGÉLICA Administration - Exam General - other findings: Obese Eye: anicteric sclera ENT: moist mucosa Neck: supple Heart: RRR, no rubs Respiratory: CTAB Gastrointestinal: soft, non-tender Extremities: no clubbing Psychiatric: normal affect, normal behavior Hosp A/P (1) Bacteremia Code(s): R78.81 - BACTEREMIA Status: Acute (2) CAD (coronary artery disease) Code(s): I25.10 - ATHSCL HEART DISEASE OF [place] CORONARY ARTERY W/O ANG PCTRS Status: Chronic (3) DM2 (diabetes mellitus, type 2) Status: Chronic (4) HTN (hypertension) Code(s): I10 - ESSENTIAL (PRIMARY) HYPERTENSION Status: Chronic (5) Restless leg syndrome Status: Suspected (6) Hyponatremia Code(s): E87.1 - HYPO-OSMOLALITY AND HYPONATREMIA Status: Resolved (7) Sepsis Code(s): A41.9 - SEPSIS, UNSPECIFIED ORGANISM Status: Resolved - Plan continue antibiotics, out of bed/ambulate Continue IV ceftriaxone. 1/2 blood cultures positive for strep pyogenes. Continue Glucerna BID. No evidence of osteomyelitis.
[2019-01-10] MEDS: hydrALAZINE 20 MG/ML VIAL SLOW IVP PRN (21:33)
[2019-01-11] MEDS: Sodium Chloride 0.9% 1,000 ML IV SCH (00:43)
[2019-01-11 08:24] VITALS: TEMP 97.4
[2019-01-11] MEDS: Metoprolol Tartrate 25 MG TAB PO SCH (08:38)
[2019-01-11] MEDS: Rosuvastatin 20 MG TAB PO SCH (08:38)
[2019-01-11] MEDS: Aspirin 81 mg Enteric Coated Tablet PO SCH (08:38)
[2019-01-11] MEDS: Enoxaparin Sodium 40 MG/0.4 ML SYRINGE SC SCH (08:39)
[2019-01-11] MEDS: Losartan 25 MG TAB PO SCH (08:39)
[2019-01-11] MEDS: Clopidogrel Bisulfate 75 MG TAB PO SCH (08:39)
[2019-01-11] MEDS: Empagliflozin [Jardiance] 10 MG PO SCH (08:42)
[2019-01-11] MEDS: Bacitracin Zinc Ointment 30 gm TUBE TOP SCH (08:42)
[2019-01-11] MEDS: cefTRIAXone\\ROCEPHIN 1 GM in Sodium Chloride 0.9% 100 ML IVPB SCH (14:54)
--- NOTE | 2019-01-11 15:35 | PRG ---
DATE OF SERVICE: 01/11/2019 SUBJECTIVE: Feeling well. No pain. A groin in the foot, not bothering him. No respiratory symptoms or diarrhea. No abdominal pain. OBJECTIVE: VITAL SIGNS: Temperature is normal. Bit elevation in systolic blood pressure. GENERAL: Awake, alert, and oriented. LUNGS: Clear. HEART: S1 and S2, regular rate. ABDOMEN: Soft. Right groin incision with very minimal erythema. No drainage. No tenderness. EXTREMITIES: In the left first MPJ skin site, little bit of redness, but no drainage or tenderness. LABORATORY DATA: White cell count 6.6, hemoglobin 12.7, and platelets 116. Microbiology with Streptococcus pyogenes, one set of blood cultures. ASSESSMENT AND DISCUSSION: Type 2 diabetes, recent femoral-popliteal bypass, chronic wound left first MPJ and group A strep bacteremia. The MRI did not show any evidence of osteomyelitis in the left foot and just mild cellulitis. I have recommended discharge planning on oral Keflex 500 three times a day for about 10 days. Discussed with the patient what to look for in terms of inflammatory changes in the groin and in the foot. Follow up in the clinic. Job ID: [id number]
[2019-01-11] MEDS: hydrALAZINE 20 MG/ML VIAL SLOW IVP PRN (15:36)
--- NOTE | 2019-01-11 16:42 | DIS ---
DATE OF ADMISSION: 01/07/2019 DATE OF DISCHARGE: 01/11/2019 PRIMARY CARE PROVIDER: Fiona Spencer MD DISCHARGE DIAGNOSES: 1. Sepsis. 2. Bacteremia. 3. Hyponatremia. 4. Diabetic neurotrophic ulcer. CONSULTATIONS DURING THIS HOSPITALIZATION: General Surgery, Dr. Xie and Infectious Diseases, Dr. Lacy. CONDITION OF PATIENT ON THE DAY OF DISCHARGE: Stable. I assessed Mr. Esquivel on the day of discharge. He denies any chest pain or shortness of breath. Vital signs are stable, he is not hypoxic. S1 and S2 are heard, regular. Lungs are clear to auscultation bilaterally. DISCHARGE MEDICATIONS: The patient is being discharged home on cephalexin 500 mg 3 times a day for 10 more days and bacitracin zinc ointment to be applied to the neurotrophic ulcer daily. Otherwise, no change was made to his pre-admission home medications as dictated in my history and physical note dated January 07, 2019. POSTDISCHARGE FOLLOWUP: The patient is advised to follow up with General Surgery Service in 3 weeks time and with primary care provider in 3 days time. HOSPITAL COURSE: Mr. Esquivel is a pleasant 63-year-old gentleman, who was admitted to [facility] on January 07, 2019, for sepsis. Please refer to my history and physical note dated January 07, 2019, for further details. He was seen by Wound Care Service and by General Surgery Service. He was recommended topical antibiotic ointment. He had MRI of the left foot, which showed mild cellulitis on the plantar and medial aspect of the forefoot, adjacent to the great toe MTP joint. There were no overt changes to suggest the presence of osteomyelitis. There were no overt changes to suggest septic arthritis of the great toe MTP joint. Blood cultures grew Streptococcus pyogenes, 1/2 from samples drawn on January 06, 2019. He was seen by Infectious Diseases Service. He was initially treated with intravenous antibiotics and is being discharged home on oral antibiotics. Many thanks for allowing me to participate in your patient's care. Please feel free to contact me with any questions or concerns. On January 10, Mr. Esquivel had white count 6600, hemoglobin 12.7, and platelet count 116,000. Normal chem-7 including normal creatinine of 0.89. DISCHARGE DESTINATION: Home. TOTAL AMOUNT OF TIME SPENT COORDINATING THIS DISCHARGE: 33 minutes. Job ID: [id number] [id number]
[2019-01-11 16:49] VITALS: BP 170/90
--- NOTE | 2019-01-14 02:13 | PQF ---
LUDWINAJ DAVID [id number] CLINICAL DOCUMENTATION CLARIFICATION FORM: POST DISCHARGE Addendum to original discharge summary date: ____ Late entry note date: __ DATE: 01/14/19 ATTN: Alvin Roberson Please exercise your independent, professional judgment in responding to the clarification form. Clinical indicators are provided on the bottom of this form for your review Can you please further specify the etiology of Sepsis? Please check appropriate box(es): [ ] Sepsis due complication of fem-pop bypass groin site. [ x] Sepsis due left foot cellulitis [ ] Sepsis of unknown etiology [ ] Other diagnosis please specify [ ] Unable to determine In addition, please specify: Present on Admission (POA): [ x ] Yes [ ] No [ ] Unable to determine For continuity of documentation, please document condition throughout progress notes and discharge summary. Thank You. CLINICAL INDICATORS - SIGNS / SYMPTOMS / LABS Consult 01/09 Dr. Lacy pg1- PVD with recent femoral-popliteal bypass Consult 01/09 Dr. Lacy pg1- ulcer in the left first MJP skin site Consult 01/09 Dr. Lacy pg2- Differential diagnosis is an infection in the left MPJ are, possible osteomyelitis and septic arthritis versus complication of fem-pop bypass groin site Hospitalist PN Dr. Russo 01/08pg.5- Sepsis secondary to skin infection vs blood stream infection H and P pg.3- Mr. Esquivel is presenting with sepsis. There is no obvious source of infection PN 01/11 Dr. Lacy- Type 2 diabetes, recent femoral-popliteal bypass, chronic wound left first MJP and group A strep bacteremia DS pg.1- He had MRI of the left foot, which showed mild cellulitis RISK FACTORS Type 2 DM-Consult 01/09 Dr. Lacy pg1- CAD_ Consult 01/09 Dr. Lacy pg1- PVD-Consult 01/09 Dr. Lacy pg1- status post right lower extremity bypass-Dr. Lacy pg1 Bacteremia-DS pg.1 TREATMENTS: Lower Extremity MRI 01/09 Infectious Consult- Dr. Lacy 01/09 IV Antibiotics- MAY 05 IV Fluids- MAY 05 (This form is maintained as a part of the permanent medical record) 2014 [employer]. All Rights Reserved Alvin [email or web address] [not provided] MTDD
== END 2019-01-11 17:39 | disposition home or self-care (01) | DRG 872 ==
LOC: ERS 00:58 → T4-B 03:37
PROVIDERS: ADMIT Family Medicine; ATTEND Family Medicine
DX: A41.9 Sepsis, unspecified organism (principal); L03.116 Cellulitis of left lower limb; E87.1 Hypo-osmolality and hyponatremia; E11.621 Type 2 diabetes mellitus with foot ulcer; L97.529 Non-pressure chronic ulcer of other part of left foot with unspecified severity; E11.40 Type 2 diabetes mellitus with diabetic neuropathy, unspecified; I25.10 Atherosclerotic heart disease of native coronary artery without angina pectoris; E11.51 Type 2 diabetes mellitus with diabetic peripheral angiopathy without gangrene; I12.9 Hypertensive chronic kidney disease with stage 1 through stage 4 chronic kidney disease, or unspecified chronic kidney disease; E11.22 Type 2 diabetes mellitus with diabetic chronic kidney disease; N18.3 Chronic kidney disease, stage 3 (moderate); E11.42 Type 2 diabetes mellitus with diabetic polyneuropathy; E66.9 Obesity, unspecified; Z79.84 Long term (current) use of oral hypoglycemic drugs; Z79.899 Other long term (current) drug therapy; Z95.1 Presence of aortocoronary bypass graft; Z86.73 Personal history of transient ischemic attack (TIA), and cerebral infarction without residual deficits; Z79.82 Long term (current) use of aspirin; Z79.4 Long term (current) use of insulin; Z68.31 Body mass index [BMI] 31.0-31.9, adult
CPT/HCPCS: 36415; 36416; 71045; 76705; 80048; 80202; 85025; 87040; 96361; 96365; 96366; A9579; J0360; J0696; J1650; J2405; J2543; J3370; J3480; J3490; J7050

== ENCOUNTER 2020-03-31 10:48 | Outpatient (CLI) | payer MEDICARE ==
[2020-04-01 06:44] LABS: SARS-CoV-2 PCR by NAA Not Detected (NotDetected)
== END 2020-03-31 10:49 | disposition home or self-care (01) ==
LOC: LABBT 10:48
PROVIDERS: ATTEND Ophthalmology Retina Specialist
DX: H43.11 Vitreous hemorrhage, right eye (principal); Z20.822 Contact with and (suspected) exposure to COVID-19
CPT/HCPCS: U0003; U0005; 87635

== ENCOUNTER 2020-04-05 08:12 | Day surgery (SDC) | payer MEDICARE ==
[~2020-04-05 08:12] MED LIST: EPINEPHrine 0.3 MG in Ophthalmic Irrigation Solution 500 ML IRR SCH
[2020-04-05] MEDS ORDERED: Phenylephrine 2.5% Ophth Soln 5 ML BOT ONE (08:44)
[2020-04-05] MEDS ORDERED: Cyclopentolate 1% Ophth Drops 15 ML BOT ONE (08:45)
[2020-04-05] MEDS ORDERED: Fentanyl 100 MCG/2 ML VIAL ONE (09:00)
[2020-04-05] MEDS ORDERED: Midazolam HCl 2 mg/2 ml Vial ONE (09:00)
[2020-04-05] MEDS ORDERED: PROPOFOL 200 MG/20 ML VIAL ONE (11:29)
[2020-04-05] MEDS ORDERED: Bupivacaine PF 0.75% SDV 10 ML ONE (11:29)
[2020-04-05] MEDS ORDERED: Lidocaine 4% PF 5 ML AMP ONE (11:29)
[2020-04-05] MEDS ORDERED: CEFAZOLIN 1 GM VIAL ONE (11:29)
[2020-04-05] MEDS ORDERED: Lidocaine 1% PF 5 ML VIAL ONE (11:29)
[2020-04-05] MEDS ORDERED: Maxitrol 0.1% Opth Oint 3.5 GM TUBE ONE (11:29)
[2020-04-05] MEDS ORDERED: Triamcinolone 40 MG/ML VIAL ONE (11:29)
--- NOTE | 2020-04-05 12:30 | OP ---
DATE OF PROCEDURE: 04/05/2020 PRINCIPAL PREOPERATIVE DIAGNOSIS: Vitreous hemorrhage, right eye. POSTOPERATIVE DIAGNOSES: 1. Vitreous hemorrhage, right eye. 2. Proliferative diabetic retinopathy. PROCEDURES PERFORMED: 1. 25-gauge pars plana vitrectomy, right eye. 2. Endolaser panretinal photocoagulation, right eye. ESTIMATED BLOOD LOSS: None. SPECIMENS REMOVED: None. COMPLICATIONS: None. ANESTHESIA: MAC with sub-Tenon's block. DESCRIPTION OF PROCEDURE: The patient was identified in the preoperative holding area, where the correct eye being the right eye was marked for surgery. The patient was taken to the operating room, where MAC anesthesia was induced. The right eye was prepped and draped in the usual sterile ophthalmic fashion for surgery. A wire-clip lid speculum was placed. An inferonasal conjunctival peritomy was fashioned with Newton scissors for administration of sub-Tenon's block. The block consisted of 1:1 ratio of 4% lidocaine and 0.75% Marcaine. A total of 5 mL was administered. A standard 25-gauge pars plana vitrectomy platform was fashioned with trocars placed approximately 3.5 mm from the limbus. The infusion was noted to be within the vitreous cavity prior to being turned on to an infusion pressure of 30 mmHg. The light pipe and microvitrector were introduced in the eye under visualization of the BIOM viewing system. A careful core and peripheral shave vitrectomy were performed through a significantly dense vitreous hemorrhage, which was originally obscuring view of the fundus. Upon clearance of the vitreous hemorrhage, moderate panretinal photocoagulation was placed and the retina was flat and attached. Following vitrectomy, the endolaser was used to provide panretinal photocoagulation fill-in to the preexisting laser as well as anterior and posterior to the preexisting laser. Following laser, the cannulas were sequentially removed and all sclerotomies were noted to be watertight. Subconjunctival Ancef and Kenalog were injected. The wire-clip lid speculum was removed followed by application of TobraDex ophthalmic ointment and a light patch and shield. The patient tolerated the procedure well, was taken to outpatient recovery area in good condition. Job ID: [id number]
== END 2020-04-05 11:25 | disposition home or self-care (01) ==
LOC: SDC 08:12
PROVIDERS: ATTEND Ophthalmology Retina Specialist
PROC: 08T43ZZ Resection of Right Vitreous, Percutaneous Approach (ICD-10-PCS; principal; 2020-04-05)
PROC: 08QE3ZZ Repair Right Retina, Percutaneous Approach (ICD-10-PCS; 2020-04-05)
DX: H43.11 Vitreous hemorrhage, right eye (principal); E11.3591 Type 2 diabetes mellitus with proliferative diabetic retinopathy without macular edema, right eye; Z95.1 Presence of aortocoronary bypass graft
CPT/HCPCS: 36416; J0171; J0690; J2250; J2704; J3010; J3301; J3490

== ENCOUNTER 2020-07-15 08:14 | Outpatient (CLI) | payer MEDICARE ==
[2020-07-15 17:54] LABS: SARS-CoV-2 PCR by NAA Not Detected (NotDetected)
== END 2020-07-15 08:15 | disposition home or self-care (01) ==
LOC: LABBT 08:14
PROVIDERS: ATTEND Family Medicine
DX: Z01.812 Encounter for preprocedural laboratory examination (principal); H43.822 Vitreomacular adhesion, left eye; Z20.822 Contact with and (suspected) exposure to COVID-19
CPT/HCPCS: U0003; U0005; 87635

== ENCOUNTER 2020-07-19 09:30 | Day surgery (SDC) | payer MEDICARE ==
[2020-07-18 10:52] VITALS: BMI 34.0
[~2020-07-19 09:30] MED LIST changes: +Fentanyl 100 MCG/2 ML VIAL ONE; +Midazolam HCl 2 mg/2 ml Vial ONE
[2020-07-19] MEDS ORDERED: Phenylephrine 2.5% Ophth Soln 5 ML BOT ONE (11:20)
[2020-07-19] MEDS ORDERED: Cyclopentolate 1% Opth Drop 2 ML BOT ONE (11:20)
[2020-07-19] MEDS ORDERED: Lidocaine 4% PF 5 ML AMP ONE (11:53)
[2020-07-19] MEDS ORDERED: CEFAZOLIN 1 GM VIAL ONE (11:53)
[2020-07-19] MEDS ORDERED: Triamcinolone 40 MG/ML VIAL ONE (11:53)
[2020-07-19] MEDS ORDERED: Bupivacaine PF 0.75% SDV 10 ML ONE (11:53)
[2020-07-19] MEDS ORDERED: Lidocaine 1% PF 5 ML VIAL ONE (11:53)
[2020-07-19] MEDS ORDERED: PROPOFOL 200 MG/20 ML VIAL ONE (11:53)
[2020-07-19] MEDS ORDERED: Maxitrol 0.1% Opth Oint 3.5 GM TUBE ONE (11:53)
== END 2020-07-19 13:33 | disposition home or self-care (01) ==
LOC: SDC 09:30
PROVIDERS: ATTEND Ophthalmology Retina Specialist
PROC: 08T53ZZ Resection of Left Vitreous, Percutaneous Approach (ICD-10-PCS; principal; 2020-07-19)
PROC: 08QF3ZZ Repair Left Retina, Percutaneous Approach (ICD-10-PCS; 2020-07-19)
DX: H43.12 Vitreous hemorrhage, left eye (principal); E11.3592 Type 2 diabetes mellitus with proliferative diabetic retinopathy without macular edema, left eye; Z79.02 Long term (current) use of antithrombotics/antiplatelets; Z79.4 Long term (current) use of insulin; Z79.82 Long term (current) use of aspirin; Z79.899 Other long term (current) drug therapy; Z95.1 Presence of aortocoronary bypass graft
CPT/HCPCS: J0171; J0690; J2250; J2704; J3010; J3301; J3490

== ENCOUNTER 2020-10-12 02:32 | Inpatient (IN) | payer MEDICARE ==
[2020-10-12 05:02] VITALS: BMI 32.8
[2020-10-12] MEDS ORDERED: Dextrose 50% Abboject 50 ML SYRINGE SLOW IVP PRN (09:49)
[2020-10-12] MEDS ORDERED: HYDROcodone/Acetaminophen 5/325 mg Tablet PO PRN (09:49)
[2020-10-12] MEDS ORDERED: Enoxaparin Sodium 40 MG/0.4 ML SYRINGE SC SCH (09:49)
[2020-10-12] MEDS ORDERED: Dextrose 5% in Water 1,000 ML IV PRN (09:49)
[2020-10-12] MEDS ORDERED: hydrALAZINE 20 MG/ML VIAL SLOW IVP PRN (09:49)
[2020-10-12] MEDS ORDERED: Ondansetron PF 4 MG/2 ML Vial IVP PRN (09:49)
[2020-10-12] MEDS ORDERED: Ondansetron ODT 4 MG TAB PO PRN (09:49)
[2020-10-12] MEDS ORDERED: Acetaminophen 500 MG TAB PO PRN (09:49)
[2020-10-12] MEDS: Cefepime 2 GM in Sodium Chloride 0.9% 100 ML IVPB SCH ×2 (11:20→20:42)
[2020-10-12] MEDS: Sodium Chloride 0.9% 1,000 ML IV SCH ×2 (11:21→20:41)
[2020-10-12] MEDS: Vancomycin 1.5 GRAM/300 ML BAG 1.5 GM in Premix Bag 1 BAG IVPB SCH ×2 (12:37→23:47)
[2020-10-12 13:34] LABS: Bacteria/HPF None Seen HPF (None Seen); Bilirubin Negative (Negative); Blood, Urine Trace (Negative); Clarity Clear (Clear); Glucose, Urine (Dipstick) Greater than 1000 mg/dL (Negative); Ketone, Urine 20 mg/dL (Negative); Leukocyte Negative Leu/uL (Negative); Nitrite Negative (Negative); Protein, Urine (Dipstick) 70 mg/dL (Neg-Trace); Specific Gravity, Urine 1.028 (1.002-1.036); Squamous Epithelial None Seen HPF (0-3); Urobilinogen Normal mg/dL (Less than 2); WBC/HPF 0-3 HPF (0-3)
[2020-10-12] MEDS ORDERED: Fentanyl 100 MCG/2 ML VIAL ONE (17:37)
[2020-10-12] MEDS ORDERED: Famotidine/PF 20 mg/2ml Vial ONE (17:37)
[2020-10-12] MEDS ORDERED: traMADol HCl 50 MG TAB PO PRN (17:46)
[2020-10-12] MEDS ORDERED: PHENYLEPHRINE-NS 100 MCG/ML 10 ML SYRINGE ONE (17:51)
[2020-10-12] MEDS ORDERED: Ketorolac Tromethamine 30 MG/ML VIAL ONE (17:51)
[2020-10-12] MEDS ORDERED: Lidocaine 1% PF 5 ML VIAL ONE (17:51)
[2020-10-12] MEDS ORDERED: Ondansetron PF 4 MG/2 ML Vial ONE (17:51)
[2020-10-12] MEDS ORDERED: PROPOFOL 200 MG/20 ML VIAL ONE (17:51)
[2020-10-12] MEDS ORDERED: Metoclopramide HCl 10 MG/2 ML VIAL ONE (17:51)
[2020-10-12] MEDS ORDERED: Ondansetron HCl/PF 4 MG/2 ML Vial IVP PRN (18:18)
[2020-10-12] MEDS ORDERED: Promethazine HCl 25 MG/ML VIAL IVPB PRN (18:18)
[2020-10-12] MEDS ORDERED: Promethazine HCl 25 MG/ML VIAL IM PRN (18:18)
[2020-10-12] MEDS: Rosuvastatin 20 MG TAB PO SCH (20:42)
[2020-10-12] MEDS: Famotidine 20 MG TAB PO SCH (20:42)
[2020-10-12] MEDS: Metoprolol Tartrate 50 MG TAB PO SCH (20:43)
[2020-10-12] MEDS: HumaLOG 300 UNITS/3 ML VIAL SC PRN (20:55)
[2020-10-13 03:58] LABS: #Eosinphils 0.2 thou/uL (0.0-0.7); #Lymphocytes 1.2 thou/uL (1.20-3.40); #Monocytes 1.2 thou/uL (0.11-0.59); #Neutrophils 13.7 thou/uL (1.40-6.50); %Eosinophils 1.2 % (0.0-10.0); %Lymphocytes 7.3 % (21.0-51.0); %Monocytes 7.1 % (0.0-10.0); %Neutrophils 84.4 % (42.0-75.0); Hemoglobin 11.9 g/dL (14.0-18.0); Mean Corpuscular HGB CONC 33.2 g/dL (32.0-36.0); Mean Corpuscular Hemoglobin 27.8 pg (27.0-31.0); Mean Corpuscular Volume 83.7 fL (78.0-98.0); Mean Platelet Volume 9.6 fL (7.4-10.4); Platelet Count 173 thou/uL (130-400); RBC Distribution Width 11.6 % (11.5-14.5); Red Blood Cell (RBC) Count 4.29 mill/uL (4.70-6.10); White Blood Cell (WBC) Count 16.2 thou/uL (4.8-10.8)
[2020-10-13 04:18] LABS: Anion Gap 11 mmol/L (10-20); BUN (Urea Nitrogen) 27 mg/dL (8.4-25.7); Calc. Creatinine Clearance 73 mL/min (70-130); Calcium 8.9 mg/dL (7.8-10.44); Carbon Dioxide 27 mmol/L (23-31); Chloride 98 mmol/L (98-107); Glucose 351 mg/dL (80-115); Potassium 3.9 mmol/L (3.5-5.1); Sodium 132 mmol/L (136-145)
[2020-10-13] MEDS: HumaLOG 300 UNITS/3 ML VIAL SC PRN ×4 (05:37→21:59)
[2020-10-13] MEDS: Sodium Chloride 0.9% 1,000 ML IV SCH ×2 (05:38→16:39)
[2020-10-13] MEDS: Famotidine 20 MG TAB PO SCH ×2 (08:55→21:43)
[2020-10-13] MEDS: Aspirin 81 mg Enteric Coated Tablet PO SCH (08:55)
[2020-10-13] MEDS: Enoxaparin Sodium 40 MG/0.4 ML SYRINGE SC SCH (08:55)
[2020-10-13] MEDS: Metoprolol Tartrate 50 MG TAB PO SCH ×2 (08:56→21:44)
[2020-10-13] MEDS: Clopidogrel Bisulfate 75 MG TAB PO SCH (08:56)
[2020-10-13] MEDS: Losartan 25 MG TAB PO SCH (08:56)
[2020-10-13] MEDS ORDERED: Non-Formulary Item 1 EACH (Rosuvastatin Calcium [Crestor] 40 MG Tablet) PO SCH (09:00)
[2020-10-13] MEDS: Cefepime 2 GM in Sodium Chloride 0.9% 100 ML IVPB SCH ×2 (09:00→21:44)
[2020-10-13] MEDS ORDERED: Aspirin 81 mg Enteric Coated Tablet PO SCH (09:00)
[2020-10-13] MEDS: Vancomycin 1.5 GRAM/300 ML BAG 1.5 GM in Premix Bag 1 BAG IVPB SCH ×2 (11:30→23:59)
[2020-10-13] MEDS: Rosuvastatin 20 MG TAB PO SCH (21:44)
[2020-10-14] MEDS: Sodium Chloride 0.9% 1,000 ML IV SCH ×2 (04:59→12:41)
[2020-10-14] MEDS: HumaLOG 300 UNITS/3 ML VIAL SC PRN ×3 (05:57→17:21)
[2020-10-14 08:39] LABS: #Eosinphils 0.3 thou/uL (0.0-0.7); #Lymphocytes 1.1 thou/uL (1.20-3.40); #Monocytes 0.6 thou/uL (0.11-0.59); #Neutrophils 5.9 thou/uL (1.40-6.50); %Basophils 0.1 % (0.0-1.0); %Eosinophils 3.7 % (0.0-10.0); %Lymphocytes 13.7 % (21.0-51.0); %Monocytes 8.1 % (0.0-10.0); %Neutrophils 74.4 % (42.0-75.0); Hemoglobin 10.4 g/dL (14.0-18.0); Mean Corpuscular Hemoglobin 26.6 pg (27.0-31.0); Mean Corpuscular Volume 83.3 fL (78.0-98.0); Mean Platelet Volume 9.6 fL (7.4-10.4); Platelet Count 168 thou/uL (130-400); RBC Distribution Width 11.7 % (11.5-14.5); Red Blood Cell (RBC) Count 3.91 mill/uL (4.70-6.10); White Blood Cell (WBC) Count 7.9 thou/uL (4.8-10.8)
[2020-10-14 08:54] LABS: Anion Gap 11 mmol/L (10-20); BUN (Urea Nitrogen) 20 mg/dL (8.4-25.7); Calc. Creatinine Clearance 86 mL/min (70-130); Calcium 8.7 mg/dL (7.8-10.44); Carbon Dioxide 26 mmol/L (23-31); Chloride 104 mmol/L (98-107); Glucose 233 mg/dL (80-115); Potassium 3.6 mmol/L (3.5-5.1); Sodium 137 mmol/L (136-145)
[2020-10-14] MEDS: Aspirin 81 mg Enteric Coated Tablet PO SCH (09:15)
[2020-10-14] MEDS: Enoxaparin Sodium 40 MG/0.4 ML SYRINGE SC SCH (09:15)
[2020-10-14] MEDS: Famotidine 20 MG TAB PO SCH (09:15)
[2020-10-14] MEDS: Losartan 25 MG TAB PO SCH (09:16)
[2020-10-14] MEDS: Clopidogrel Bisulfate 75 MG TAB PO SCH (09:16)
[2020-10-14] MEDS: Metoprolol Tartrate 50 MG TAB PO SCH (09:16)
[2020-10-14] MEDS: Cefepime 2 GM in Sodium Chloride 0.9% 100 ML IVPB SCH (09:16)
[2020-10-14] MEDS: Vancomycin 1.5 GRAM/300 ML BAG 1.5 GM in Premix Bag 1 BAG IVPB SCH (12:40)
[2020-10-14] MEDS ORDERED: hydrALAZINE 20 MG/ML VIAL SLOW IVP SCH (16:00)
[2020-10-14 16:18] VITALS: TEMP 97.8
[2020-10-14 16:47] VITALS: BP 135/65
== END 2020-10-14 17:50 | disposition home health service (06) | DRG 854 ==
LOC: ERS 02:32 → 2NO 03:27
PROVIDERS: ADMIT Student in an Organized Health Care Education/Training Program; ATTEND Internal Medicine
PROC: 0Y6N0Z9 Detachment at Left Foot, Partial 1st Ray, Open Approach (ICD-10-PCS; principal; 2020-10-12)
PROC: 0Y6N0ZB Detachment at Left Foot, Partial 2nd Ray, Open Approach (ICD-10-PCS; 2020-10-12)
DX: A41.9 Sepsis, unspecified organism (principal); E11.52 Type 2 diabetes mellitus with diabetic peripheral angiopathy with gangrene; R65.20 Severe sepsis without septic shock; E11.21 Type 2 diabetes mellitus with diabetic nephropathy; Z20.822 Contact with and (suspected) exposure to COVID-19; E11.319 Type 2 diabetes mellitus with unspecified diabetic retinopathy without macular edema; E11.621 Type 2 diabetes mellitus with foot ulcer; L97.529 Non-pressure chronic ulcer of other part of left foot with unspecified severity; E78.5 Hyperlipidemia, unspecified; E78.00 Pure hypercholesterolemia, unspecified; I12.9 Hypertensive chronic kidney disease with stage 1 through stage 4 chronic kidney disease, or unspecified chronic kidney disease; I25.10 Atherosclerotic heart disease of native coronary artery without angina pectoris; N18.30 Chronic kidney disease, stage 3 unspecified; Z95.1 Presence of aortocoronary bypass graft; Z95.5 Presence of coronary angioplasty implant and graft; Z86.73 Personal history of transient ischemic attack (TIA), and cerebral infarction without residual deficits; Z79.01 Long term (current) use of anticoagulants; Z79.82 Long term (current) use of aspirin; Z79.4 Long term (current) use of insulin; Z79.899 Other long term (current) drug therapy
CPT/HCPCS: 36415; 36416; 80048; 81001; 85025; 87070; 87077; 87186; 87205; 88305; 88311; 99285; J0360; J0692; J1650; J1815; J1885; J2405; J2704; J2765; J3010; J3370; J3490; S0028

== ENCOUNTER 2020-11-04 12:01 | Emergency (ER) | payer MEDICARE ==
[2020-11-04 13:59] LABS: #Basophils 0.1 thou/uL (0.0-0.2); #Eosinphils 0.5 thou/uL (0.0-0.7); #Lymphocytes 2.5 thou/uL (1.20-3.40); #Monocytes 0.7 thou/uL (0.11-0.59); #Neutrophils 8.1 thou/uL (1.40-6.50); %Basophils 0.4 % (0.0-1.0); %Eosinophils 4.4 % (0.0-10.0); %Lymphocytes 20.9 % (21.0-51.0); %Monocytes 6.1 % (0.0-10.0); %Neutrophils 68.1 % (42.0-75.0); Hemoglobin 14.7 g/dL (14.0-18.0); Mean Corpuscular HGB CONC 33.1 g/dL (32.0-36.0); Mean Corpuscular Hemoglobin 27.6 pg (27.0-31.0); Mean Corpuscular Volume 83.3 fL (78.0-98.0); Mean Platelet Volume 9.9 fL (7.4-10.4); Platelet Count 203 thou/uL (130-400); RBC Distribution Width 12.6 % (11.5-14.5); Red Blood Cell (RBC) Count 5.35 mill/uL (4.70-6.10); White Blood Cell (WBC) Count 11.8 thou/uL (4.8-10.8)
[2020-11-04 14:23] LABS: ALT (SGPT) 19 U/L (8-55); AST (SGOT) 19 U/L (5-34); Albumin 4.2 g/dL (3.4-4.8); Alkaline Phosphatase 79 U/L (40-110); Anion Gap 13 mmol/L (10-20); BUN (Urea Nitrogen) 22 mg/dL (8.4-25.7); Bilirubin, Total 0.4 mg/dL (0.2-1.2); Calc. Creatinine Clearance 0 mL/min (70-130); Calcium 9.8 mg/dL (7.8-10.44); Carbon Dioxide 31 mmol/L (23-31); Chloride 100 mmol/L (98-107); Globulin 3.5 g/dL (2.4-3.5); Glucose 103 mg/dL (80-115); Protein, Total 7.7 g/dL (5.8-8.1); Sodium 140 mmol/L (136-145)
== END 2020-11-04 15:47 | disposition home or self-care (01) ==
LOC: ERS 12:01
DX: T87.89 Other complications of amputation stump (principal); E78.5 Hyperlipidemia, unspecified; E11.9 Type 2 diabetes mellitus without complications; I10 Essential (primary) hypertension; Z89.422 Acquired absence of other left toe(s); Z79.82 Long term (current) use of aspirin; Z79.02 Long term (current) use of antithrombotics/antiplatelets; Z79.899 Other long term (current) drug therapy
CPT/HCPCS: 36415; 80053; 85025; 99283

== ENCOUNTER 2022-09-04 08:02 | Day surgery (SDC) | payer MEDICARE ==
[~2022-09-04 08:02] MED LIST changes: -Fentanyl 100 MCG/2 ML VIAL ONE; -Midazolam HCl 2 mg/2 ml Vial ONE
[2022-09-04] MEDS ORDERED: PHENYLephrine 2.5% Ophth Soln 15 ml Bottle ONE (08:36)
[2022-09-04] MEDS ORDERED: Cyclopentolate 1% Opth Drop 2 ML BOT ONE (08:36)
[2022-09-04] MEDS ORDERED: Midazolam HCl 2 mg/2 ml Vial ONE (09:25)
[2022-09-04] MEDS ORDERED: Triamcinolone 40 MG/ML VIAL ONE (09:32)
[2022-09-04] MEDS ORDERED: Lidocaine 4% PF 5 ML AMP ONE (09:32)
[2022-09-04] MEDS ORDERED: Glycopyrrolate 0.2 MG/ML 5 ML SYRINGE ONE (09:32)
[2022-09-04] MEDS ORDERED: Lidocaine 1% PF 5 ML VIAL ONE (09:32)
[2022-09-04] MEDS ORDERED: Bupivacaine 0.75% 10 ML VIAL ONE (09:32)
[2022-09-04] MEDS ORDERED: Maxitrol 0.1% Opth Oint 3.5 GM TUBE ONE (09:32)
[2022-09-04] MEDS ORDERED: CEFAZOLIN 1 GM VIAL ONE (09:32)
[2022-09-04] MEDS ORDERED: PROPOFOL 200 MG/20 ML VIAL ONE (09:32)
== END 2022-09-04 10:47 | disposition home or self-care (01) ==
LOC: SDC 08:02
PROVIDERS: ATTEND Ophthalmology Retina Specialist
PROC: 08T43ZZ Resection of Right Vitreous, Percutaneous Approach (ICD-10-PCS; principal; 2022-09-04)
PROC: 08QE3ZZ Repair Right Retina, Percutaneous Approach (ICD-10-PCS; 2022-09-04)
DX: H43.11 Vitreous hemorrhage, right eye (principal)
CPT/HCPCS: 36416; J0171; J0690; J2250; J2704; J3301; J3490

== ENCOUNTER 2022-09-27 12:35 | Emergency (ER) | payer MEDICARE ==
[2022-09-27 13:35] LABS: #Eosinphils 0.2 thou/uL (0.0-0.7); #Monocytes 0.6 thou/uL (0.11-0.59); #Neutrophils 4.2 thou/uL (1.40-6.50); %Basophils 0.6 % (0.0-1.0); %Eosinophils 2.4 % (0.0-10.0); %Lymphocytes 26.1 % (21.0-51.0); %Monocytes 8.2 % (0.0-10.0); %Neutrophils 62.6 % (42.0-75.0); Hemoglobin 15.8 g/dL (14.0-18.0); Mean Corpuscular Hemoglobin 26.7 pg (27.0-31.0); Mean Corpuscular Volume 83.4 fl (78.0-98.0); Mean Platelet Volume 10.7 fL (7.4-10.4); Platelet Count 159 10x3/uL (130-400); RBC Distribution Width 13.7 % (11.5-14.5); Red Blood Cell (RBC) Count 5.91 mill/uL (4.70-6.10); White Blood Cell (WBC) Count 6.7 10x3/uL (4.8-10.8)
[2022-09-27 13:49] LABS: PTT 25.8 sec (22.9-36.1); Prothrombin Time 13.1 sec (12.0-14.7)
[2022-09-27] MEDS ORDERED: Iopamidol-370 76% 500 ML MDV (1 ML CHARGE) ONE (14:00)
[2022-09-27 14:06] LABS: ALT (SGPT) 56 U/L (8-55); AST (SGOT) 36 U/L (5-34); Albumin 4.4 g/dL (3.4-4.8); Alkaline Phosphatase 75 U/L (40-110); Anion Gap 14 mmol/L (10-20); BUN (Urea Nitrogen) 31 mg/dL (8.4-25.7); Bilirubin, Total 0.4 mg/dL (0.2-1.2); Calc. Creatinine Clearance 0 mL/min (70-130); Calcium 9.7 mg/dL (7.8-10.44); Carbon Dioxide 27 mmol/L (23-31); Chloride 103 mmol/L (98-107); Estimated GFR 49; Globulin 3.3 g/dL (2.4-3.5); Glucose 116 mg/dL (80-115); Protein, Total 7.7 g/dL (5.8-8.1); Sodium 140 mmol/L (136-145)
[2022-09-27] MEDS ORDERED: Heparin 25,000 units/D5W 0 ML ONE (15:44)
== END 2022-09-27 16:50 | disposition home or self-care (01) ==
LOC: ERS 12:35
DX: I77.1 Stricture of artery (principal); I25.10 Atherosclerotic heart disease of native coronary artery without angina pectoris; E11.9 Type 2 diabetes mellitus without complications; Z79.4 Long term (current) use of insulin; I10 Essential (primary) hypertension; E78.00 Pure hypercholesterolemia, unspecified; Z79.899 Other long term (current) drug therapy; Z79.84 Long term (current) use of oral hypoglycemic drugs
CPT/HCPCS: 36415; 80053; 85025; 85610; 85730; 86850; 86900; 86901; 93005; 93923; J1644; Q9967